=== PATIENT | male | born 1990 | race Two or more races ===

== ENCOUNTER 2019-02-24 19:13 | Emergency (ER) | payer OTHER ==
[~2019-02-24] VITALS: Ht 170.2 cm; Wt 54.9 kg
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
--- NOTE | 2019-02-24 19:31 | NUR ---
[employer] OFFICER AT THE BED SIDE FOR REPORT
--- NOTE | 2019-02-24 19:43 | NUR ---
PT BROUGHT BY RADIOLOGY TO CT
--- NOTE | 2019-02-24 19:59 | NUR ---
BACK FROM CT SCAN
[2019-02-24] MEDS ORDERED: LIDOCAINE 1%-EPI 1:100,000 20 ML VIAL ONE (20:17)
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
[2019-02-24 21:17] VITALS: BP 135/85
== END 2019-02-24 21:08 | disposition home or self-care (01) ==
LOC: ER 19:13
DX: S01.112A Laceration without foreign body of left eyelid and periocular area, initial encounter (principal); Z60.2 Problems related to living alone; Y04.0XXA Assault by unarmed brawl or fight, initial encounter; Y93.89 Activity, other specified; Y92.89 Other specified places as the place of occurrence of the external cause; Y99.0 Civilian activity done for income or pay
CPT/HCPCS: 12011; 70450; 70486; 99284; A6403; J3490